=== PATIENT | male | born 1995 | race Two or more races ===

== ENCOUNTER 2017-01-20 04:06 | Emergency (ER) | payer OTHER ==
[~2017-01-20] VITALS: Ht 177.8 cm; Wt 49.9 kg
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
[2017-01-20] MEDS ORDERED: HYDROCODONE/APAP 10-325 MG TABLET PO ONE (04:30)
[2017-01-20] MEDS ORDERED: HYDROCODONE/APAP 10-325 MG TABLET ONE (04:34)
--- NOTE | 2017-01-20 05:07 | NUR ---
Patient discharged to home in stable conditon. Written and verbal after care instructions given. Patient verbalizes understanding of instructions.
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
== END 2017-01-20 05:12 | disposition home or self-care (01) ==
LOC: ER 04:13
DX: S06.0X0A Concussion without loss of consciousness, initial encounter (principal); M25.561 Pain in right knee; R51 Headache; F41.9 Anxiety disorder, unspecified; Y04.0XXA Assault by unarmed brawl or fight, initial encounter; Y93.89 Activity, other specified; Y99.8 Other external cause status; Y92.89 Other specified places as the place of occurrence of the external cause
CPT/HCPCS: 70450; 73560; A4663

== ENCOUNTER 2017-02-26 03:11 | Emergency (ER) | payer OTHER ==
[~2017-02-26] VITALS: Ht 177.8 cm; Wt 56.7 kg
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
[2017-02-26] MEDS ORDERED: CLONAZEPAM 2 MG TABLET (03:36)
[2017-02-26] MEDS ORDERED: MEDICAL MARIJUANA (03:37)
[2017-02-26] MEDS ORDERED: NEOMY/BACITRA/POLYMYXIN B OINT UD PACKET TP ONE ×2 (04:00→06:30)
[2017-02-26] MEDS ORDERED: ONDANSETRON ODT 4 MG TAB.RAPDIS SL ONE (04:45)
[2017-02-26] MEDS ORDERED: OXYCODONE/APAP 5-325 MG TABLET PO ONE (04:45)
[2017-02-26] MEDS ORDERED: OXYCODONE/APAP 5-325 MG TABLET ONE (04:53)
[2017-02-26] MEDS ORDERED: ONDANSETRON ODT 4 MG TAB.RAPDIS ONE (04:53)
[2017-02-26] MEDS ORDERED: CLONAZEPAM 0.5 MG TABLET ONE (05:14)
[2017-02-26] MEDS ORDERED: CLONAZEPAM 0.5 MG TABLET PO ONE (05:15)
--- NOTE | 2017-02-26 06:45 | NUR ---
Patient discharged to home in stable conditon. Written and verbal after care instructions given. Patient verbalizes understanding of instructions. maranet left with steady gait, picked up by mother.
[2017-02-26 06:46] VITALS: BP 114/65
== END 2017-02-26 06:47 | disposition home or self-care (01) ==
LOC: ER 03:13
DX: S09.90XA Unspecified injury of head, initial encounter (principal); S61.212A Laceration without foreign body of right middle finger without damage to nail, initial encounter; R51 Headache; F41.9 Anxiety disorder, unspecified; F10.20 Alcohol dependence, uncomplicated; Y08.89XA Assault by other specified means, initial encounter; Y93.89 Activity, other specified; Y99.8 Other external cause status; Y92.89 Other specified places as the place of occurrence of the external cause
CPT/HCPCS: 70450; A4663; Q0162

== ENCOUNTER 2017-06-05 01:56 | Emergency (ER) | payer OTHER ==
[~2017-06-05] VITALS: Ht 177.8 cm; Wt 53.6 kg
[~2017-06-05 01:56] MED LIST: CLONAZEPAM 2 MG TABLET; MEDICAL MARIJUANA
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
[2017-06-05] MEDS ORDERED: [UNRECOGNIZED DRUG - OTHER] (02:28)
--- NOTE | 2017-06-05 02:58 | NUR ---
Patient out of unit for ct scan via [place]
--- NOTE | 2017-06-05 03:12 | NUR ---
Patient back from ct scan with no distress noted
--- NOTE | 2017-06-05 03:30 | NUR ---
Patient interacting well with staff member and mother. No distress noted
[2017-06-05 03:39] LABS: BILIRUBIN,TOTAL 0.9 mg/dL (0.2-1.0); CREATININE 0.9 mg/dL (0.6-1.3); POTASSIUM 3.4 mmol/L (3.5-5.1); TOTAL PROTEIN, SERUM 7.5 g/dL (6.4-8.2)
[2017-06-05 03:57] LABS: WHITE BLOOD COUNT (AUTO) 8.4 K/UL (4.0-11.2)
[2017-06-05 03:59] LABS: BASOPHILS % (AUTO) 0.6 % (0.0-2.0); HEMATOCRIT 46.8 % (40-50); HEMOGLOBIN 14.7 G/DL (14.0-18.0); LYMPHOCYTES % (AUTO) 37.3 % (20.5-74.5); MEAN CORPUSCULAR HEMOGLOBIN 21.5 UUG (27.0-31.0); MEAN CORPUSCULAR HGB CONC 31 g/dL (32.0-37.0); MEAN CORPUSCULAR VOLUME 68.5 FL (82.0-92.0); MONOCYTES % (AUTO) 6.2 % (0-11); NEUTROPHILS % (AUTO) 53.9 % (31.5-64.5); PLATELET COUNT (AUTO) 253 K/UL (150-450)
[2017-06-05 04:02] LABS: RED BLOOD CELL COUNT(AUTO) 6.83 MIL/UL (4.7-6.1)
[2017-06-05 04:24] LABS: EOSINOPHILS % (MANUAL) 3 % (0-8); LYMPHOCYTES % (MANUAL) 35 % (38-48); NEUTROPHILS % (MANUAL) 56 % (40-55)
[2017-06-05 04:25] LABS: BAND % (MANUAL) 6 % (0-10)
[2017-06-05] MEDS ORDERED: IBUPROFEN 600 MG TABLET PO ONE (04:30)
--- NOTE | 2017-06-05 04:33 | NUR ---
Patient discharged to home in stable conditon with mother taking patient home. Written and verbal after care instructions given. Patient/mother verbalizes understanding of instructions. Walked out of ER with steady gait. No distress noted
[2017-06-05 04:35] VITALS: BP 118/75
[2017-06-05] MEDS ORDERED: IBUPROFEN 600 MG TABLET ONE (04:37)
== END 2017-06-05 04:36 | disposition home or self-care (01) ==
LOC: ER 01:56
DX: S13.4XXA Sprain of ligaments of cervical spine, initial encounter (principal); F10.129 Alcohol abuse with intoxication, unspecified; S06.0X0A Concussion without loss of consciousness, initial encounter; F90.9 Attention-deficit hyperactivity disorder, unspecified type; V49.9XXA Car occupant (driver) (passenger) injured in unspecified traffic accident, initial encounter; Y93.89 Activity, other specified; Y92.413 State road as the place of occurrence of the external cause; Y99.9 Unspecified external cause status
CPT/HCPCS: 36415; 70450; 72125; 80053; 85025; 99285; A4663; G0480